=== PATIENT | male | born 1955 | race Two or more races ===

== ENCOUNTER 2022-02-20 04:59 | Emergency (ER) | payer MEDICARE, OTHER ==
[~2022-02-20] VITALS: Ht 175.3 cm; Wt 11.8 kg
[2022-02-20 06:39] LABS: Basophils # (auto) 0.1 10 ^3/uL (0-0.2); Basophils % (auto) 0.6 % (0.0-2.0); Eosinophils # (auto) 0.2 10 ^3/uL (0-0.8); Eosinophils % (auto) 1.3 % (0.0-7.0); Hematocrit 43.6 % (41.0-53.0); Hemoglobin 14.7 g/dL (13.5-17.5); Lymphocytes # (auto) 2.5 10 ^3/uL (0.4-5.4); Lymphocytes % (auto) 21.6 % (10.0-50.0); Mean Corpuscular Hemoglobin 28.4 pg (28.0-32.0); Mean Corpuscular Hgb Conc. 33.8 g/dL (32.0-36.0); Mean Corpuscular Volume 84.1 fL (80.0-100.0); Monocytes # (auto) 0.8 10 ^3/uL (0-1.3); Monocytes % (auto) 6.6 % (0.0-12.0); Neutrophils # (auto) 8.2 10 ^3/uL (1.6-8.6); Neutrophils % (auto) 69.9 % (37.0-80.0); Nucleated Red Blood Cells % 0.1 %; Red Blood Cells 5.19 10^6/uL (4.5-5.90); White Blood Cell 11.7 10^3/uL (4.4-10.8)
[2022-02-20 06:56] LABS: Albumin 3.6 g/dL (3.4-5.0); BUN/Creatinine Ratio 18.4; Calcium 8.8 mg/dL (8.5-10.1); Potassium 3.8 mmol/L (3.5-5.1)
[2022-02-20 06:59] LABS: Bilirubin, Total 0.6 mg/dL (0.2-1.0); Total Protein 7.3 g/dL (6.4-8.2)
[2022-02-20] MEDS ORDERED: HYDROmorphone HCL 2 MG/ML VL/or syr IV ONE (08:30)
[2022-02-20] MEDS ORDERED: SODIUM CHLORIDE 0.9% 1,000 ML IV ONE (08:30)
[2022-02-20] MEDS ORDERED: SODIUM CHLORIDE 0.9% 500 ML IVB ONE (08:30)
[2022-02-20 08:56] LABS: Magnesium 1.9 mg/dL (1.6-2.6)
[2022-02-20] MEDS: PROMETHAZINE HCL 25 MG/ML 1ML IV PRN ×2 (09:11→10:11)
[2022-02-20 10:39] VITALS: BP 111/62
[2022-02-20] MEDS ORDERED: MAGNSUS48 PO (14:23)
[2022-02-20] MEDS ORDERED: OMEP-263 PO (14:23)
[2022-02-20] MEDS ORDERED: METO-281 PO (14:23)
== END 2022-02-20 14:55 | disposition home or self-care (01) ==
LOC: EDBD 04:59 → ER 04:59
DX: K59.00 Constipation, unspecified (principal); M54.40 Lumbago with sciatica, unspecified side; J44.9 Chronic obstructive pulmonary disease, unspecified; E11.9 Type 2 diabetes mellitus without complications; I10 Essential (primary) hypertension; F17.210 Nicotine dependence, cigarettes, uncomplicated; Z88.0 Allergy status to penicillin
CPT/HCPCS: 36415; 71046; 74176; 80053; 83690; 83735; 84443; 85025; 93005; 96361; 96374; 96375; 99285; J1170; J2550; J7030; J7040

== ENCOUNTER 2025-10-21 19:38 | Emergency (ER) | payer MEDICARE ==
[~2025-10-21] VITALS: Ht 170.2 cm; Wt 97.5 kg
[~2025-10-21 19:38] MED LIST: MAGNSUS48 PO; METO-281 PO; OMEP-448 PO
[2025-10-21 21:01] VITALS: BP 152/58; PULSE 62; RESP 22; TEMP 98.1; O2SAT 96
[2025-10-21] MEDS ORDERED: ACE3T PO (21:01)
--- NOTE | 2025-10-21 21:02 | ED.PDOC ---
Back pain HPI HPI Comments 69-year-old male presents to ER with complaints of back pain x3 days. Patient with past medical history significant for chronic lumbar back pain reports that he has been experiencing worsening lower lumbar back pain x3 days s/p "spending several hours in bed". Denies any trauma/falls/heavy lifting and denies use of medications for current symptoms. Patient presents to ER afebrile, in no distress. Denies fever, body aches, chills, fatigue, night sweats, shortness of breath, chest pain, abdominal/pelvic pain, extremity weakness, numbness/tingling, n/v, changes in urination/BM or any further symptoms/complaints Chief Complaint: Back Pain Time Seen by MD: 20:04 Primary Care Provider: UNKNOWN Reviewed Notes: Nurses Notes, Medications, Allergies Allergies: Coded Allergies: Penicillins (Verified Allergy, Severe, 02/20/22) Home Meds Active Scripts Acetaminophen W/ Codeine (Tylenol W/Cod #3) 1 Tab Tb, 1 TAB PO Q6HPRN, #10 TAB 0 Refills Prov:ROGE SANTANA 10/21/25 Magnesium Hydroxide (Milk of Magnesia 400 mg/5Ml) 1 Kat Kat, 1 KAT PO BID PRN for 5 Days, #20 ML Prov:HAYDEE MOORE MD 02/20/22 Metoclopramide Hcl (Reglan) 10 Mg Tab, 10 MG PO BID for 15 Days, #30 TAB Prov:HAYDEE MOORE MD 02/20/22 Omeprazole (Omeprazole Dr) 40 Mg Cap, 40 MG PO DAILY for 30 Days, #30 CAP Prov:HAYDEE MOORE MD 02/20/22 Information Source: Patient Mode of Arrival: EMS Past Medical History PAST MEDICAL HISTORY: COPD, DM, HTN Past Medical History (Other): Chronic lumbar back pain Surgical History: Hernia Repair Family History Family History: Unknown Social History Smoker: Cigarettes, Greater Than 1 Pack/Day Alcohol: Denies ETOH Use Drugs: Marijuana Lives In: Home Constitutional: denies: chills, diaphoresis, fatigue, fever, malaise, sweats, weakness, others EENTM: denies: blurred vision, double vision, ear bleeding, ear discharge, ear drainage, ear pain, ear ringing, eye pain, eye redness, hearing loss, mouth pain, mouth swelling, nasal discharge, nose bleeding, nose congestion, nose pain, photophobia, tearing, throat pain, throat swelling, voice changes, others Respiratory: denies: cough, hemoptysis, orthopnea, SOB at rest, shortness of breath, SOB with excertion, stridor, wheezing, others Cardiovascular: denies: chest pain, dizzy spells, diaphoresis, Dyspnea on exertion, edema, irregular heart beat, left arm pain, lightheadedness, palpitations, PND, syncope, others Gastrointestinal: denies: abdomen distended, abdominal pain, blood streaked bowels, constipated, diarrhea, dysphagia, difficulty swallowing, hematemesis, melena, nausea, poor appetite, poor fluid intake, rectal bleeding, rectal pain, vomiting, others Genitourinary: denies: burning, dysuria, flank pain, frequency, hematuria, incontinence, penile discharge, penile sore, pain, testicle pain, testicle swelling, urgency, others Neurological: denies: dizziness, fainting, headache, left sided numbness, left sided weakness, numbness, paresthesia, pre-existing deficit, right sided numbness, right sided weakness, seizure, speech problems, tingling, tremors, weakness, others Musculoskeletal: reports: others (As stated in HPI) Integumetry: denies: bruises, change in color, change in hair/nails, dryness, laceration, lesions, lumps, rash, wounds, others Allergic/Immunocompromised: denies: Difficulty Healing, Frequent Infections, Hives, Itching, others Hematologic/Lymphatic: denies: anemia, blood clots, easy bleeding, easy bruising, swollen glands, others Endocrine: denies: excessive hunger, excessive sweating, excessive thirst, excessive urination, flushing, intolerance to cold, intolerance to heat, unexplained weight gain, unexplained weight loss, others Psychiatric: denies: anxiety, bipolar disorder, depression, hopeless, panic disorder, schizophrenia, sleepless, suicidal, others Physical Exam General Appearance: No Apparent Distress, Obese HEENT: PERRL/EOMI Neck: Full Range of Motion, Non-Tender, Normal Respiratory: Chest Non-Tender, Lungs Clear, No Accessory Muscle Use, No Respiratory Distress, Normal Breath Sounds Cardiovascular: No Murmur, No Gallop, Regular Rate/Rhythm Breast Exam: Deferred Gastrointestinal: Non Tender, No Pulsatile Mass, Soft Genitalia: Deferred Pelvic: Deferred Rectal: Deferred Extremities: Normal capillary refill, Normal range of motion Musculoskeletal : Extremity Location: Back (TTP centralized to lower lumbar spine and to bilateral lower lumbar paraspinals noted. No skin changes appreciated. Slowed gait noted) Neurologic: Alert, No Motor Deficits, Normal Affect, Normal Mood, No Sensory Deficits Cerebellar Function: Normal Reflexes: Normal Skin: Dry, Normal Color, Warm Lymphatic: No Adenopathy Was a procedure done? Was a procedure done?: No Sedation Sedation?: No Back Pain Differential Dx Differential Diagnosis: AAA, Fracture, Urolithiasis X-Ray, Labs, Meds, VS Vital Signs Date Time Temp Pulse Resp B/P (MAP) Pulse Ox O2 Delivery O2 Flow Rate FiO2 10/21/25 21:01 98.1 62 22 152/58 (89) 96 98.1 10/21/25 19:58 98.1 62 22 152/58 96 98.1 Current Medications Medications (Trade) Dose Ordered Sig/Karen Route Start Time Stop Time Status Last Admin Acetaminophen/ Hydrocodone Bitart (Caspar 5/325MG Tab) 1 tab ONCE ONCE PO 10/21/25 21:00 10/21/25 21:01 DC 10/21/25 21:06 PATIENT: ELIAN DONALDACCT: [id number]: [id number] : 1955 LOC: ER ROOM / BED: / AGE / SEX: 69 / M ADM STATUS: REG ER SERVICE 04 ORDERING PHYSICIAN: ROGE SANTANA PROCEDURE(s): LUMB2 - LUMBAR SPINE 3 VIEW REASON: lumbar back pain ORDER NUMBER(s): [id number], ACCESSION NUMBER(s): [id number] CLINICAL INDICATION: lumbar back pain TECHNIQUE: 2 radiographic views of the lumbar were obtained. COMPARISON: None FINDINGS/IMPRESSION: Dextroscoliosis of the lumbar spine is noted. Bony spondylosis and degenerative disc changes are noted. There are no compressed vertebra. There is straightening of the normal lumbar lordotic curve which may be secondary to the scoliosis or patient positioning. ATED BY: BLAYNE BOWLES Jr., DO DICTATED DATE/TIME: 10/21/252111 SIGNED BY: BLAYNE BOWLES Jr., DO SIGNED DATE/TIME: 10/21/252111 CC: Lumbar spine x-ray reviewed Caspar 5/325 mg p.o. ordered Patient neurovascularly intact and reported improvement in symptoms prior to discharge Advised on rest/no strenuous activity Advised to follow up with PCP in 1-2 days Patient verbalized understanding and agreeable with current plan of care Advised to return to ER immediately if symptoms worsen Images Reviewed?: Images reviewed and evaluated by me Time of 1ST Reevaluation: 20:34 Reevaluation 1ST: N/A Patient Education/Counseling: Diagnosis, Treatment, Prognosis, Need For Follow Up Family Education/Counseling: No Family Present SEPSIS Sepsis Screen Date sepsis recognized/suspect: Oct 21, 2025 Time Sepsis recognized/suspect: 2000 Recent Procedure: No On Antibiotic Therapy: No Respiratory Rate >20: No Heart Rate >90: No Temp<36 C (96.8 F) or >38.3 C: No SBP <90 or MAP <65 mmHG: No New Acute Mental Status Change: No Is the patient on CPAP, BIPAP,: No Physician Orders Lumbar Spine 3 View (10/21/25 20:05) Vital Signs Date Time Temp Pulse Resp B/P (MAP) Pulse Ox O2 Delivery O2 Flow Rate FiO2 10/21/25 21:01 98.1 62 22 152/58 (89) 96 98.1 10/21/25 19:58 98.1 62 22 152/58 96 98.1 Medications Medications Dose Ordered Sig/Karen Route Start Time Stop Time Status Last Admin Dose Admin Acetaminophen/ Hydrocodone Bitart 1 tab ONCE ONCE PO 10/21/25 21:00 10/21/25 21:01 DC 10/21/25 21:06 Departure 1 Departure Time of Disposition: 20:59 Impression: Primary Impression: Acute exacerbation of chronic low back pain Additional Impression: Lumbar strain Qualified Codes: S39.012A - Strain of muscle, fascia and tendon of lower back, initial encounter Disposition: HOME / SELF CARE / HOMELESS Condition: Stable e-Prescriptions Acetaminophen W/ Codeine (Tylenol W/Cod #3) 1 Tab Tb 1 TAB PO Q6HPRN, #10 TAB 0 Refills Prov: ROGE SANTANA 10/21/25 Discharged With: Friend Critical Care Note Critical Care Time?: No Stability Stability form required: No Heart Score Heart Score: Heart Score Response (Comments) Value History N/A 0 EKG N/A 0 Age N/A 0 Risk Factors N/A 0 Troponin N/A 0 Total 0 ROGE SANTANA Oct 21, 2025 21:02
[2025-10-21] MEDS: HYDROcodone-ACET 5/325MG TAB PO ONE (21:06)
--- NOTE | 2025-10-21 21:14 | DVH ---
CLINICAL INDICATION: lumbar back pain TECHNIQUE: 2 radiographic views of the lumbar were obtained. COMPARISON: None FINDINGS/IMPRESSION: Dextroscoliosis of the lumbar spine is noted. Bony spondylosis and degenerative disc changes are noted. There are no compressed vertebra. There is straightening of the normal lumbar lordotic curve which may be secondary to the scoliosis or patient positioning.
== END 2025-10-21 21:33 | disposition home or self-care (01) ==
LOC: EDBD 19:38 → ER 19:38
DX: S39.012A Strain of muscle, fascia and tendon of lower back, initial encounter (principal); G89.29 Other chronic pain; F12.90 Cannabis use, unspecified, uncomplicated; F17.210 Nicotine dependence, cigarettes, uncomplicated; I10 Essential (primary) hypertension; E11.9 Type 2 diabetes mellitus without complications; J44.9 Chronic obstructive pulmonary disease, unspecified; Z79.899 Other long term (current) drug therapy; Z88.0 Allergy status to penicillin; Z98.890 Other specified postprocedural states; X58.XXXA Exposure to other specified factors, initial encounter; Y93.89 Activity, other specified; Y92.89 Other specified places as the place of occurrence of the external cause; Y99.8 Other external cause status
CPT/HCPCS: 72100